=== PATIENT | female | born 1975 | race Caucasian/White ===

== ENCOUNTER → 2023-07-21 10:14 | Outpatient (BNVA) | payer OTHER, SELFPAY | PROVIDERS: Family Provider Family Medicine; PCP Family Medicine; Visit Provider Nurse Practitioner Family | DX: R50.9 Fever, unspecified (principal) | CPT/HCPCS: 87400 ==

== ENCOUNTER → 2024-02-21 14:03 | Outpatient (BNVA) | payer OTHER, SELFPAY | PROVIDERS: Family Provider Family Medicine; PCP Family Medicine; Visit Provider Nurse Practitioner Women's Health | DX: Z01.419 Encounter for gynecological examination (general) (routine) without abnormal findings; N89.8 Other specified noninflammatory disorders of vagina; B37.31 Acute candidiasis of vulva and vagina | CPT/HCPCS: 82306; 83036; 84443; 85025; 87624 ==

== ENCOUNTER 2024-03-03 09:56 | Outpatient (CLI) | payer OTHER, SELFPAY ==
--- NOTE | 2024-03-03 15:00 | MM_ITS ---
WS: [id number] Bilateral screening 3D tomosynthesis digital mammogram, 03/03/2024 9:57 AM Clinical Data: Z12.39 - Encounter for other screening for malignant neop... Comparison: None. Findings: No spiculated masses or clustered calcifications are seen. There are no secondary signs of carcinoma . There is an irregular area in the upper outer quadrant of the right breast at approximately the 10 or 11 o'clock position. No calcifications are associated with this irregular area. The left breast is normal. MM/MM scr BI tomosynthesis [id number] Impression: 1. Irregular area in upper outer quadrant right breast recommend compression vi ews in the CC and MLO projection and ML view additional. 2. Recommend right breast ultrasound of the upper outer quadrant. BIRADS: 0 - Incomplete: Need additional imaging evaluation FOLLOW UP: See Report DENSITY: The breasts are heterogeneously dense, which may obscure small masses. The CAD odd piece checker was used
== END 2024-03-03 09:57 | disposition home or self-care (01) ==
LOC: RAD 09:57
PROVIDERS: Family Provider Family Medicine; Visit Provider Nurse Practitioner Women's Health
DX: Z12.31 Encounter for screening mammogram for malignant neoplasm of breast (principal); N63.11 Unspecified lump in the right breast, upper outer quadrant
CPT/HCPCS: 77063; 77067; 82306; 83036; 84443; 85025; 87624

== ENCOUNTER 2024-04-20 14:42 | Outpatient (CLI) | payer OTHER, SELFPAY ==
--- NOTE | 2024-04-20 14:47 | US_ITS ---
WS: [id number] Right breast ultrasound, 04/20/2024 Clinical Data: ABNORMAL MAMMOGRAM Comparison: Mammogram, 04/20/2024 Findings: Imaging in the right breast in the upper outer quadrant at 10:00 to 11:00 revealed no cysts or masses . Only normal breast tissue could be seen. US/US breast RT limited* [id number] Impression: 1. Negative imaging of the upper outer quadrant right breast at the 10 to 11 o' clock position. 2. Recommend return to annual screening mammograms. BIRADS: 2 - Benign FOLLOW UP: 1 Year Follow-up
--- NOTE | 2024-04-20 14:47 | MM_ITS ---
WS: [id number] Right breast diagnostic 3D tomosynthesis digital mammogram, 04/20/2024 Clinical Data: ABNORMAL MAMMO Comparison: 03/03/2024 Findings: In the upper outer quadrant of the right breast there is an irregular and asymmetric density which lopez s no clustered calcifications. The density appears to integrate with the heterogeneous density of the right breast and is difficult to image on the ML and MLO views. It is best seen on the CC spot films . MM/MM diag RT tomosynthesis [id number] Impression: 1. Asymmetric tissue density in upper outer quadrant right breast probably the 10 to 11 o'clock position. 2. Recommend right breast ultrasound. DENSITY: The breasts are heterogeneously dense, which may obscure small masses. BIRADS: 2 - Benign FOLLOW UP: See Report The CAD box car checker was used.
== END 2024-04-20 14:43 | disposition home or self-care (01) ==
PROVIDERS: Family Provider Family Medicine; Visit Provider Nurse Practitioner Women's Health
DX: N63.11 Unspecified lump in the right breast, upper outer quadrant (principal)
CPT/HCPCS: 76642; 77061; G0279